=== PATIENT | male | born 1985 | race Caucasian/White ===

== ENCOUNTER → 2025-10-05 09:50 | Outpatient (CLI) | payer OTHER, SELFPAY ==
--- NOTE | 2025-10-05 09:52 | DI.RAD.S_ITS ---
PROCEDURE: XR CERVICAL SPINE 2V OR 3V INDICATIONS: acute on chronic pain w/ b/l weakness/tingling /2 fall 09/11 TECHNIQUE: 3 views of the cervical spine were acquired. COMPARISON: None. FINDINGS: Bones: No acute fractures or dislocations to the C7 level. The lateral masses of C1 appear intact on the odontoid view. No suspicious bony lesions. Multilevel disc space narrowing and degenerative endplate changes. Multilevel uncovertebral joint and facet hypertrophy. Soft tissues: No prevertebral soft tissue swelling. IMPRESSION: 1. No acute displaced fracture or traumatic subluxation. 2. Mild cervical spondylosis. Approved by: Mike Kolb M.D. on 10/05/2025 at 10:33
== END ==
LOC: RAD 09:51
PROVIDERS: PCP Family Medicine; Referring Provider Physician Assistant; Visit Provider Physician Assistant
DX: M48.02 Spinal stenosis, cervical region (principal); M79.601 Pain in right arm; M79.602 Pain in left arm; M50.30 Other cervical disc degeneration, unspecified cervical region; M99.81 Other biomechanical lesions of cervical region; R20.2 Paresthesia of skin; R29.898 Other symptoms and signs involving the musculoskeletal system; M47.812 Spondylosis without myelopathy or radiculopathy, cervical region
CPT/HCPCS: 72040